=== PATIENT | male | born 1955 | race Caucasian/White ===

== ENCOUNTER 2020-06-11 12:30 | Observation (INO) | payer MEDICARE ==
[~2020-06-11] VITALS: Ht 177.8 cm; Wt 83.1 kg
--- NOTE | 2020-06-11 13:29 | PHYS DOC ---
General Adult EDM: Chief Complaint: ALTERED MENTAL STATUS HPI: HPI: 64-year-old male presents with multiple complaints. He has been feeling very anxious about his health over the last few days. Over the last month he states he is more winded with exertion. He is also had some central chest pain. It se ems to get better with rest. He also feels like his hearing has decreased significantly recently. He used to be on medications for high blood pressure and other things but took himself off of them 10 years ago. He has not really seen a doctor since that time. He is a smoker. No official diagnosis of COPD. He denies fever or chills. Review of Systems: Review of Systems: Constitutional: Denies fever or chills Eyes: Denies change in visual acuity HENT: Decreased hearing. Denies nasal congestion or sore throat Respiratory: Denies cough or shortness of breath Cardiovascular: Chest pain GI: Denies abdominal pain, nausea, vomiting, bloody stools or diarrhea : Denies dysuria Musculoskeletal: Denies back pain or joint pain Integument: Denies rash Neurologic: Altered mental status. Denies headache, focal weakness or sensory changes Endocrine: Denies polyuria or polydipsia Lymphatic: Denies swollen glands Psychiatric: Denies depression or anxiety Heart Score: HEART Score for Chest Pain: HEART Score for Chest Pain Response (Comments) Value History Moderately Suspicious 1 ECG Nonspecific Repolarizatio 1 Age > 65 2 Risk Factors 1 or 2 Risk Factors 1 Troponin < Normal Limit 0 Total 5 Risk Factors: Risk Factors: DM, Current or recent (<one month) smoker, HTN, HLP, family history of CAD, obesity. Risk Scores: Score 0 - 3: 2.5% MACE over next 6 weeks - Discharge Home Score 4 - 6: 20.3% MACE over next 6 weeks - Admit for Clinical Observation Score 7 - 10: 72.7% MACE over next 6 weeks - Early Invasive Strategies Allergies: Allergies: Allergies Coded Allergies Type Severity Reaction Last Updated Verified Penicillins Allergy Intermediate 06/11/20 Yes Physical Exam: PE: Constitutional: Well developed, well nourished, no acute distress, non-toxic appearance. [] HENT: Normocephalic, atraumatic, bilateral external ears normal, oropharynx moist, no oral exudates, nose normal. Bilateral tympanic membranes dull, but no signs of infection. [] Eyes: PERRLA, EOMI, conjunctiva normal, no discharge. [] Neck: Normal range of motion, no tenderness, supple, no stridor. [] Cardiovascular: Heart rate regular rhythm, no murmur [] Lungs & Thorax: Bilateral breath sounds clear to auscultation [] Abdomen: Bowel sounds normal, soft, no tenderness, no masses, no pulsatile masses. [] Skin: Warm, dry, no erythema, no rash. [] Back: No tenderness, no CVA tenderness. [] Extremities: No tenderness, no cyanosis, no clubbing, ROM intact, no edema. [] Neurologic: Alert and oriented X 3, normal motor function, normal sensory function, no focal deficits noted. [] Psychologic: Affect normal, judgement normal, mood anxious. [] EKG: EKG: Sinus bradycardia, rate 52, normal axis, no ST elevations or depressions, first- degree heart block. [] Radiology/Procedures: Radiology/Procedures: [] Impressions: Examination: CT HEAD WO CONTRAST History: Reason: AMS / Comparison/Correlation: None Findings: Axial images of the head were obtained without contrast. Atrophy and chronic ischemic changes are noted. No intracranial hemorrhage, midline shift, or mass effect. Significant calcific involvement of the superior aspect of the left vertebral artery is noted. Bony structures are unremarkable. Impression: No acute process. Electronically signed by: Luis Fernando Gandhi MD (06/11/2020 1:25 PM) [facility] DI[facility]ATED AND SIGNED BY: LUIS FERNANDO GANDHI MD DATE: 06/11/20 1325 CC: SRIKANTH MARIN DO; PCP,NO ~ Examination: CHEST AP ONLY History: Reason: AMS / Spl. Instructions: / History: Comparison: None. Findings: AP portable upright frontal view of the chest was obtained. The cardiomediastinal silhouette is normal. No focal infiltrate. Subtle interstitial thickening in the lung esparza diffusely is present.. There is no pneumothorax. No pleural effusion is appreciated. No acute bone abnormality. IMPRESSION: Subtle interstitial thickening of the lung esparza diffusely is of indeterminate chronicity. No focal process. Electronically signed by: Luis Fernando Gandhi MD (06/11/2020 1:34 PM) [facility] DI[facility]ATED AND SIGNED BY: LUIS FERNANDO GANDHI MD DATE: 06/11/20 1334 CC: SRIKANTH MARIN DO; PCP,DESTIN ~ Course & Med Decision Making: Course & Med Decision Making Pertinent Labs and Imaging studies reviewed. (See chart for details) The patient's labs are unremarkable. His EKG is negative for acute findings. His troponin is negative. His head CT is negative for acute findings. The patient does have a heart score of 5. I believe he would benefit from admission and further management. I spoke with Dr. Gustafson about the patient he has accepted him for admission. The patient is in agreement with this plan. [] Dragon Disclaimer: Dragon Disclaimer: This electronic medical record was generated, in whole or in part, using a voice recognition dictation system. Departure Departure: Impression: Primary Impression: Chest pain Additional Impressions: Altered mental status Anxiety about health Disposition: 09 ADMITTED INPT THIS HOSP Admitting Physician: Rao Gustafson Condition: STABLE Referrals: PCP,DESTIN (PCP) SRIKANTH MARIN DO Jun 11, 2020 13:29
[2020-06-11 13:32] LABS: BASO % 0 % (0-3); EOS # 0.1 x10^3/uL (0.0-0.7); EOS % 1 % (0-3); HEMOGLOBIN 16.9 g/dL (13.0-17.5); LYMPH # 1.4 x10^3/uL (1.0-4.8); LYMPH % 23 % (24-48); MEAN CORPUSCULAR HEMOGLOBIN 31 pg (25-35); MEAN CORPUSCULAR HGB CONC 34 g/dL (31-37); MEAN CORPUSCULAR VOLUME 90 fL (79-100); MONO # 0.8 x10^3/uL (0.0-1.1); MONO % 13 % (0-9); NEUT # 3.8 x10^3uL (1.8-7.7); NEUT % 63 % (31-73); PLATELET COUNT 275 x10^3/uL (140-400); RED BLOOD COUNT 5.53 x10^6/uL (4.30-5.70); RED CELL DISTRIBUTION WIDTH 13.6 % (11.5-14.5); WHITE BLOOD COUNT 6.1 x10^3/uL (4.0-11.0)
--- NOTE | 2020-06-11 13:37 | RAD ---
Examination: CHEST AP ONLY History: Reason: AMS / Spl. Instructions: / History: Comparison: None. Findings: AP portable upright frontal view of the chest was obtained. The cardiomediastinal silhouette is normal. No focal infiltrate. Subtle interstitial thickening in the lung esparza diffusely is present.. There is no pneumothorax. No pleural effusion is appreciated. No acute bone abnormality. IMPRESSION: Subtle interstitial thickening of the lung esparza diffusely is of indeterminate chronicity. No focal process. Electronically signed by: Luis Fernando Everett MD (06/11/2020 1:34 PM) [facility]
[2020-06-11 13:49] LABS: CALCIUM 9.2 mg/dL (8.5-10.1); CREATININE 0.8 mg/dL (0.7-1.3); GFR 96.7; POTASSIUM 3.8 mmol/L (3.5-5.1)
[2020-06-11 13:56] LABS: ALBUMIN 3.6 g/dL (3.4-5.0); ALBUMIN/GLOBULIN RATIO 0.8 (1.0-1.7); TOTAL BILIRUBIN 0.5 mg/dL (0.2-1.0); TOTAL PROTEIN 8.4 g/dL (6.4-8.2)
--- NOTE | 2020-06-11 13:56 | EKG ---
[address] [address] Test Date: 2020-06-11 Test Time: 13:27:58 Pat Name: MANAN PACE Department: Room: Gender: M Solder Technician: PRASANNA : 1955 Requested By: SRIKANTH MARIN Order Number: [id number] Reading MD: Mart Malone MD Measurements Intervals [place] Rate: 52 P: 51 TN: 244 QRS: 54 QRSD: 120 T: -1 QT: 408 QTc: 381 Interpretive Statements SINUS RHYTHM PROLONGED TN INTERVAL T ABNORMALITY IN INFERIOR LEADS ABNORMAL ECG RI6.02 No previous ECG available for comparison Electronically Signed On 06-11-2020 14:09:11 CDT by Mart Malone MD
[2020-06-11 20:12] LABS: BILIRUBIN,URINE NEG (NEG); CLARITY,URINE CLEAR; COLOR,URINE YELLOW; GLUCOSE,URINE NEG (NEG)
[2020-06-11 20:13] LABS: BACTERIA,URINE 0 /HPF (0-FEW); NITRITE,URINE NEG (NEG); RBC,URINE 0 /HPF (0-2); UROBILINOGEN,URINE 0.2 mg/dL (0.2 mg/dL); WBC,URINE 0 /HPF (0-4)
[2020-06-11 21:15] VITALS: BP 188/75
[2020-06-11] MEDS ORDERED: no home medications (22:03)
--- NOTE | 2020-06-11 22:21 | NUR ---
The patient, MANAN PACE, 64 y/o, M admitted by KLEVER ORTIZ MD, was given written information regarding hospital policies, unit procedures and contact persons. Valuables were checked and noted. PT brought in by friend to ER for AMS and chest pain. The chest pain occurs when coughing. Per PT, cough is productive of thin, white mucous. PT with dry, nonproductive cough while RN in room. CTA on RA. PT states he has pain in his back and sometime his neck at this time, no chest pain currently. Reviewed with PT his PMH, PSH, SH, FH and mediations. PT states his house needs to be sold but there is confusion on the will for that between himself and his sister. PT takes no medications. PT is not sure what he might have medically wrong with him now or in the past except for HTN and anxiety. He has had a LT shoulder surgery of some sort and he thinks there may be hardware there. Socially, the PT is close with his neighbor but does not see his sister, both parents are and has no children.
[2020-06-11 23:06] VITALS: BP 135/73
[2020-06-12] VITALS (7 sets, daily range): BP systolic 122–161; BP diastolic 66–84
--- NOTE | 2020-06-12 08:41 | PDOC2 ---
CARDIAC CONSULT DATE OF CONSULT DOS: DATE: 06/12/20 TIME: 08:38 REASON FOR CONSULT Reason for Consult Chest pain REFERRING PHYSICIAN Referring Physician Dr. Gustafson SOURCE Source: Chart review, Patient HPI History of Present Illness This is a 64 yo male who presented secondary to chest pain, HAWK, and decreased hearing. Patient reports for the last month that he has experienced shortness of breath, dizziness, and central chest pressure with exertional activities. Also reports hearing loss with exertional activities. Symptoms resolved with rest. No h/o heart disease. Did take medication of hypertension, but has not taken in about 10 yeas. Does not routinely go to the doctor. No recent cardiac workup. PAST MEDICAL HISTORY Cardiovascular: HTN Psych: Anxiety, Depression PAST SURGICAL HISTORY Past Surgical History: No pertinent history FAMILY HISTORY Family History: Diabetes, Hypertension SOCIAL HISTORY Smoke: 1 pack per day ALCOHOL: none Drugs: Other (h/o cocaine, marijuana use. Has not used in many years) Lives: Alone CURRENT MEDICATIONS Current Medications Current Medications Influenza Virus Vaccine Quadrival (Fluzone Quad Syringe) 0.5 ml ONCE ONCE VAX IM ; Start 06/12/20 at 09:00; Stop 06/12/20 at 09:01 Active Scripts Active Reported [no home medications] ALLERGIES Allergies: Coded Allergies: Penicillins (Verified Allergy, Intermediate, 06/11/20) ROS Review of Systems 14 point ROS conducted with pertinent positives noted above in HPI PHYSICAL EXAM General: Alert, Oriented X3, Cooperative, No acute distress HEENT: Atraumatic, Mucous membr. moist/pink Lungs: Other (diminished throughout ) Heart: Regular rate, Normal S1, Normal S2 Abdomen: Soft, No tenderness Extremities: No edema, Normal pulses Skin: No breakdown Neuro: Normal speech, Sensation intact Psych/Mental Status: Mental status NL, Mood NL MUSCULOSKELETAL: Osteoarthritic changes both hands VITALS Vital Signs Vital Signs Date Time Temp Pulse Resp B/P (MAP) Pulse Ox O2 Delivery O2 Flow Rate FiO2 06/12/20 05:25 97.9 57 18 151/71 (97) 95 Room Air LABS LABS Laboratory Tests Test 06/11/20 13:10 06/11/20 19:40 White Blood Count 6.1 x10^3/uL (4.0-11.0) Red Blood Count 5.53 x10^6/uL (4.30-5.70) Hemoglobin 16.9 g/dL (13.0-17.5) Hematocrit 50.0 % (39.0-53.0) Mean Corpuscular Volume 90 fL (79-100) Mean Corpuscular Hemoglobin 31 pg (25-35) Mean Corpuscular Hemoglobin Concent 34 g/dL (31-37) Red Cell Distribution Width 13.6 % (11.5-14.5) Platelet Count 275 x10^3/uL (140-400) Neutrophils (%) (Auto) 63 % (31-73) Lymphocytes (%) (Auto) 23 % (24-48) Monocytes (%) (Auto) 13 % (0-9) Eosinophils (%) (Auto) 1 % (0-3) Basophils (%) (Auto) 0 % (0-3) Neutrophils # (Auto) 3.8 x10^3uL (1.8-7.7) Lymphocytes # (Auto) 1.4 x10^3/uL (1.0-4.8) Monocytes # (Auto) 0.8 x10^3/uL (0.0-1.1) Eosinophils # (Auto) 0.1 x10^3/uL (0.0-0.7) Basophils # (Auto) 0.0 x10^3/uL (0.0-0.2) Sodium Level 136 mmol/L (136-145) Potassium Level 3.8 mmol/L (3.5-5.1) Chloride Level 100 mmol/L (98-107) Carbon Dioxide Level 24 mmol/L (21-32) Anion Gap 12 (6-14) Blood Urea Nitrogen 11 mg/dL (8-26) Creatinine 0.8 mg/dL (0.7-1.3) Estimated GFR (Cockcroft-Gault) 96.7 BUN/Creatinine Ratio 14 (6-20) Glucose Level 99 mg/dL (70-99) Lactic Acid Level 0.8 mmol/L (0.4-2.0) Calcium Level 9.2 mg/dL (8.5-10.1) Total Bilirubin 0.5 mg/dL (0.2-1.0) Aspartate Amino Transf (AST/SGOT) 14 U/L (15-37) Alanine Aminotransferase (ALT/SGPT) 11 U/L (16-63) Alkaline Phosphatase 54 U/L (46-116) Troponin I Quantitative < 0.017 ng/mL (0-0.055) Total Protein 8.4 g/dL (6.4-8.2) Albumin 3.6 g/dL (3.4-5.0) Albumin/Globulin Ratio 0.8 (1.0-1.7) Urine Collection Type Unknown Urine Color Yellow Urine Clarity Clear Urine pH 5.5 Urine Specific [place] 1.020 Urine Protein 30 mg/dl (NEG-TRACE) Urine Glucose (UA) Neg mg/dL (NEG) Urine Ketones (Stick) Trace mg/dL (NEG) Urine Blood Neg (NEG) Urine Nitrite Neg (NEG) Urine Bilirubin Neg (NEG) Urine Urobilinogen Dipstick 0.2 mg/dL (0.2 mg/dL) Urine Leukocyte Esterase Neg (NEG) Urine RBC 0 /HPF (0-2) Urine WBC 0 /HPF (0-4) Urine Squamous Epithelial Cells None /LPF Urine Bacteria 0 /HPF (0-FEW) ASSESSMENT/PLAN Assessment/Plan 1. Chest pain, mixed feature. Initial trop negative. EKG abnormal, but none previously for comparison. ? Related to underlying coronary vs lung disease. 2. Accelerated hypertension; remains elevated 3. 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 4. ? 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 Recommendations Echo to assess LV systolic function Trend troponin Lipids ASA therapy Add lisinopril for BP control Probable outpatient ischemic evaluation Smoking cessation discussed/encouraged Patient to follow up in our [place] office with Dr. Malone June 15 at 2:45pm. BEATRIZ WOOD APRN Jun 12, 2020 08:41
[2020-06-12] MEDS ORDERED: FLU VACC QS 2020-21(6MOS+)/PF 0.5 ML SYRINGE. VAX IM ONE (09:00)
[2020-06-12] MEDS: LISINOPRIL 10 MG TABLET PO SCH (10:34)
[2020-06-12] MEDS: ASPIRIN ENTERIC COATED 81 MG TABLET.DR. PO SCH (10:35)
--- NOTE | 2020-06-12 13:48 | PN ---
DATE: 06/12/2020 SUBJECTIVE: The patient was admitted yesterday for atypical chest pain, shortness of breath on exertion and also episodes of dizziness and basically, he has 2 sets of cardiac enzymes that ruled out myocardial infarction. He was seen in consultation by the pipe fitter fire sprinkler systems, who recommended basically an echo to assess left ventricular systolic function, check his lipid profile, start aspirin and add lisinopril and to arrange for an outpatient ischemic evaluation. When I saw him this afternoon, he continues complaining of dizziness that seems to be positional. OBJECTIVE: GENERAL: When I examined him, he looked well and was clearly in no apparent respiratory distress. No pallor, jaundice, cyanosis or thyromegaly. No jugular venous distention or limb edema. VITAL SIGNS: His heart rate was 60, blood pressure was 134/78, temperature was 97.6, respiratory rate 20, and oxygen saturation was 96% on room air. HEAD, EYES, EARS, NOSE AND THROAT: Showed normocephalic, atraumatic. NECK: Supple. HEART: Showed normal first and second heart sounds. No gallop or murmur. CHEST: Clear to auscultation. No crepitation or rhonchi. ABDOMEN: Distended, soft. NEUROLOGIC: He is awake, alert, responding appropriately. All cranial nerves are intact. He moves extremities without difficulty. He does seem to be hard of hearing. LABORATORY DATA: His lab work this morning showed that his second set of cardiac enzymes showed troponin to be less than 0.018. I did check his orthostatic and showed his blood pressure lying was 137/71 with a heart rate of 59. Blood pressure sitting was 138/74 and heart rate was 57 and blood pressure standing was 148/66 with a heart rate of 64. PLAN: My plan is obviously to await the result of the echocardiogram and also consult PT, OT and Dr. Ragland as he seemed to probably have some form of benign positional vertigo. KLEVER ORTIZ MD DR: JEROD/mc JOB#: [id number] / [id number]
--- NOTE | 2020-06-12 13:48 | HP ---
ADMIT DATE: 06/11/2020 HISTORY OF PRESENT ILLNESS: The patient is a 64-year-old male who presented to the Emergency Room with chest pain and dyspnea on exertion and decreased hearing. He reported that over the last month, he has experienced shortness of breath, dizziness, and central chest pressure with exertional activity. He also reported hearing loss with exertional activity. Symptoms resolved with rest. He has no history of heart disease. Did take medication for hypertension, but has not taken any for almost 10 years, has not seen a doctor for more than 10 years, has never had any cardiac workup. He was extensively investigated in the Emergency Room and his lab work was unremarkable. His first set of cardiac enzymes showed troponin to be less than ____ and his chest x-ray showed the cardiomediastinal silhouette is normal. No focal infiltrate. Subtle interstitial thickening in the lung esparza diffusely is present. There is no pneumothorax, no pleural effusion is appreciated, no acute bony abnormalities. The patient was admitted for further evaluation and treatment. His EKG showed that the patient was in sinus rhythm with prolonged WA interval. He has T-wave abnormalities in inferior leads, and unfortunately, there is no previous EKG to compare with. We will do 2 more sets of cardiac enzyme and consult the Cardiology team for evaluation and treatment. PAST MEDICAL HISTORY: Significant for hypertension, although he has not received any treatment for more than 10 years. He has also anxiety and depression. PAST SURGICAL HISTORY: Significant for skin graft to his right leg as he was electrocuted in his 40s. FAMILY HISTORY: Positive for type 2 diabetes and hypertension. SOCIAL HISTORY: He lives alone. He is single, never , has no children. He continued to smoke a pack a day, does not drink alcohol; however, he has a history of using cocaine and marijuana, although has not used it for many years. ALLERGIES: HE IS ALLERGIC TO PENICILLIN. MEDICATIONS: He is currently on no medication. REVIEW OF SYSTEMS: As per history of present illness. PHYSICAL EXAMINATION: GENERAL: On arrival to the Emergency Room, he looked well and was clearly in no apparent respiratory distress. No pallor, jaundice, cyanosis or thyromegaly. No jugular venous distention. No limb edema. VITAL SIGNS: His heart rate was 52, blood pressure was 188/75, temperature 97.8, respiratory rate was 18 and oxygen saturation was 94%. HEAD, EYES, EARS, NOSE AND THROAT: Showed normocephalic, atraumatic. NECK: Supple. HEART: Showed normal first and second heart sounds. No gallop or murmur. CHEST: Showed central trachea, equal bilateral expansion, air entry, vesicular sounds. No crepitation or rhonchi. ABDOMEN: Distended, soft, nontender. NEUROLOGIC: He is hard of hearing, but otherwise all his cranial nerves are intact. EXTREMITIES: He moves extremities without difficulty. He continued to complain of marked dizziness. LABORATORY DATA: His lab work on arrival showed a white cell count of 6100, hemoglobin 17, hematocrit 50, MCV was 90 and platelet count 275,000. His chemistry showed a serum sodium 136, potassium 3.8, chloride 100, bicarbonate 24, anion gap of 12, BUN 11, creatinine was 0.8, estimated GFR was 96 mL per minute, his glucose was 99, lactic acid was 0.8, calcium was 9.2. Total bilirubin, AST, ALT, alkaline phosphatase were normal. His first troponin was less than 0.017. Total protein was 8.4 and albumin was 3.6. His urinalysis showed the urine was yellow, clear with a pH of 5.5, specific gravity of 1.020. The urine showed mild proteinuria, but negative for glucose, trace of ketones, and negative for blood, nitrite and leukocyte esterase. There are no rbc's, no wbc's, and no bacteria. His CT scan of the head showed atrophy and chronic ischemic changes are noted. No intracranial hemorrhage, midline shift, or mass effect. Significant calcific involvement of the superior aspect of the left vertebral artery is noted. Bony structures are unremarkable. His chest x-ray showed the cardiomediastinal silhouette is normal. No focal infiltrate. Subtle interstitial thickening in the lung esparza diffusely is present. There is no pneumothorax, no pleural effusion is appreciated, and no acute bone abnormalities. PLAN: The patient was admitted to do 2 more sets of cardiac enzyme and consult the Cardiology team. KLEVER ORTIZ MD DR: JEROD/mc JOB#: [id number] / [id number]
--- NOTE | 2020-06-12 14:35 | NUR ---
CONSULT FOR DR. STEEN CALLED FOR DIZZINESS.
[2020-06-12 16:15] LABS: THYROID STIM HORMONE (TSH) 1.911 uIU/mL (0.358-3.740)
--- NOTE | 2020-06-12 16:48 | CARD ---
MR#: [id number] Date of Study: 06/12/2020 Ordering Physician: BEATRIZ WOOD, Referring Physician: BEATRIZ WOOD, Tech: Leah Perez ALIN APPROVED REPORT EXAM: Two-dimensional and M-mode echocardiogram with Doppler and color Doppler. Other Information Quality : Good INDICATION Chest Pain Dyspnea on Exertion 2D DIMENSIONS RVDd3.0 (2.9-3.5cm)Left Atrium(2D)4.0 (1.6-4.0cm) IVSd0.9 (0.7-1.1cm)Aortic Root(2D)2.9 (2.0-3.7cm) LVDd5.3 (3.9-5.9cm)PWd0.9 (0.7-1.1cm) LVDs2.5 (2.5-4.0cm)FS (%) 30.0 % SV114.6 mlLVEF(%)60.0 (>50%) Aortic Valve AoV Peak Stephen.135.9cm/sAoV VTI25.8cm AO Peak GR.7.4mmHgAO Mean GR.4mmHg VANE (VTI)4.87cm2 Mitral Valve MV E Xxpailwi39.7cm/sMV DECEL [id number] MV A Wewdenyo97.0cm/sE/A Ratio0.9 Tricuspid Valve TR P. Wykmbrqz950lf/sRAP AFOXKZAK1ctXd TR Peak Gr.16hzXzTIGX52khMk LEFT VENTRICLE The left ventricle is normal size. There is normal left ventricular wall thickness. The left ventricu lar systolic function is normal and the ejection fraction is within normal range. The Ejection Fracti on is 55-60%. There is minimal hypokinesis in the basal inferior wall. Transmitral Doppler flow patte rn is Grade I-abnormal relaxation pattern. RIGHT VENTRICLE The right ventricle is normal size. The right ventricular systolic function is normal. A moderator ba nd is seen in the right ventricle. ATRIA The left atrium is mildly dilated. The right atrium size is normal. The interatrial septum is intact with no evidence for an atrial septal defect or patent foramen ovale as noted on 2-D or Doppler imagi ng. AORTIC VALVE The aortic valve is calcified but opens well. Doppler and Color Flow revealed no significant aortic r egurgitation. There is no significant aortic valvular stenosis. MITRAL VALVE The mitral valve is calcified but opens well. There is no evidence of mitral valve prolapse. There is no mitral valve stenosis. Doppler and Color-flow revealed trace mitral regurgitation. TRICUSPID VALVE The tricuspid valve is normal in structure and function. Doppler and Color Flow revealed trace tricus pid regurgitation. The PA pressure was estimated at 16 mmHg. There is no tricuspid valve stenosis. PULMONIC VALVE The pulmonic valve is not well visualized. Doppler and Color Flow revealed no pulmonic valvular regur gitation. There is no pulmonic valvular stenosis. GREAT VESSELS The aortic root is normal in size. The ascending aorta is not well seen. The IVC is normal in size an d collapses >50% with inspiration. PERICARDIAL EFFUSION There is no evidence of significant pericardial effusion. Critical Notification Critical Value: No <Conclusion> The left ventricle is normal size. The left ventricular systolic function is normal and the ejection fraction is within normal range. The Ejection Fraction is 55-60%. There is minimal hypokinesis in the basal inferior wall. Doppler and Color Flow revealed no significant aortic regurgitation. There is no significant aortic valvular stenosis. Doppler and Color-flow revealed trace mitral regurgitation. Doppler and Color Flow revealed trace tricuspid regurgitation. The PA pressure was estimated at 16 mmHg. Signed by : Héctor Vega MD Electronically Approved : 06/12/2020 16:48:01
[2020-06-12] MEDS ORDERED: ACETAMINOPHEN 325 MG TABLET PO PRN (17:00)
[2020-06-13 04:59] VITALS: BP 154/80
[2020-06-13 07:53] VITALS: BP 154/80
[2020-06-13] MEDS: ASPIRIN ENTERIC COATED 81 MG TABLET.DR. PO SCH (07:53)
[2020-06-13] MEDS: LISINOPRIL 10 MG TABLET PO SCH (07:53)
--- NOTE | 2020-06-13 08:37 | DS ---
DATE OF DISCHARGE: 06/13/2020 ATTENDING PHYSICIANS: Dr. Gustafson, Dr. Gardner FINAL DISCHARGE DIAGNOSES: 1. Altered mentation, resolved. 2. Underlying anxiety with personality disorder. 3. Probable developmental delay. 4. Cardiac workup, but nonischemic. 5. Chronic obstructive pulmonary disease. 6. Dyspnea related to cigarette use. 7. Component of benign positional vertigo, resolved. HISTORY AND PHYSICAL: This is a 64-year-old gentleman, totally noncompliant, continues to smoke, presented to the ED with chest pain atypical and some dyspnea with exertion. He is a heavy smoker. He was admitted for further treatment and evaluation. PHYSICAL EXAMINATION: Please see the dictated note. PERTINENT LABORATORY AND X-RAY STUDIES: Two sets of cardiac enzymes were negative for myocardial necrosis. Electrolytes were within normal range. Hemoglobin maintained at 16.9 g/dL with a white count of 6100. The obligatory CT of the head showed no acute process and a chest x-ray done on admission showed subtle interstitial thickening, diffusely chronic in nature. No acute infiltrates or decompensation identified. COURSE IN THE HOSPITAL: The patient was seen in consultation, had Cardiology evaluation. They recommended an aspirin and treatment of hypertension. He has been notoriously noncompliant in the past. Lisinopril was started. He has some sleeping issues. I recommended a trial of [id number] Restoril. Please refer to Cardiology consultation. By the third day, he requested Public Transit Specialist help. His parents have . He lives in the house. He has very little insight and has difficulty managing. At this time, I reassured him. He needs to follow up, whether or not he will see the followup doctor remains to be seen. He was stable on the day of discharge. Vital signs were stable. He was afebrile. He had no further chest pain. He was discharged home with a prescription for lisinopril 10 mg 1 p.o. daily, Restoril 30 mg 1 at bedtime #15 pills. Followup visit with his primary care physician when available. He has very little insight. He was set up to see Cardiology as an outpatient, whether or not he will go there remains to be seen. I recommended a baby aspirin a day. In addition, we had case work aide to see him. Strong encouragement to quit smoking, whether or not he will quit remains to be seen. In any event, the patient was then discharged from our hospital in stable condition with explicit instructions and followup care. TOTAL DISCHARGE TIME SPENT: 41 minutes. ISRAEL GARDNER MD DR: SOFIA/mc JOB#: [id number] / [id number] ROSALBA White MD
--- NOTE | 2020-06-13 08:49 | PDOC ---
CARDIO Progress Notes Date & Time Date of Service DATE: 06/13/20 TIME: 08:47 Time of Evaluation 08:47 Subjective Notes No chest pain, palpitations, dizziness, diaphoresis Vitals Vitals Vital Signs Date Time Temp Pulse Resp B/P (MAP) Pulse Ox O2 Delivery O2 Flow Rate FiO2 06/13/20 08:07 Room Air 06/13/20 07:53 52 154/80 06/13/20 04:59 98.0 20 94 Weight Weight [ ] Input and Output I.O. Intake and Output 06/13/20 07:00 Intake Total 1960 ml Output Total 4 ml Balance 1956 ml Intake Oral 1960 ml Output Urine Total 4 ml Laboratory Labs Laboratory Tests Test 06/11/20 13:10 06/11/20 19:40 06/12/20 11:24 White Blood Count 6.1 x10^3/uL (4.0-11.0) Red Blood Count 5.53 x10^6/uL (4.30-5.70) Hemoglobin 16.9 g/dL (13.0-17.5) Hematocrit 50.0 % (39.0-53.0) Mean Corpuscular Volume 90 fL (79-100) Mean Corpuscular Hemoglobin 31 pg (25-35) Mean Corpuscular Hemoglobin Concent 34 g/dL (31-37) Red Cell Distribution Width 13.6 % (11.5-14.5) Platelet Count 275 x10^3/uL (140-400) Neutrophils (%) (Auto) 63 % (31-73) Lymphocytes (%) (Auto) 23 % (24-48) Monocytes (%) (Auto) 13 % (0-9) Eosinophils (%) (Auto) 1 % (0-3) Basophils (%) (Auto) 0 % (0-3) Neutrophils # (Auto) 3.8 x10^3uL (1.8-7.7) Lymphocytes # (Auto) 1.4 x10^3/uL (1.0-4.8) Monocytes # (Auto) 0.8 x10^3/uL (0.0-1.1) Eosinophils # (Auto) 0.1 x10^3/uL (0.0-0.7) Basophils # (Auto) 0.0 x10^3/uL (0.0-0.2) Sodium Level 136 mmol/L (136-145) Potassium Level 3.8 mmol/L (3.5-5.1) Chloride Level 100 mmol/L (98-107) Carbon Dioxide Level 24 mmol/L (21-32) Anion Gap 12 (6-14) Blood Urea Nitrogen 11 mg/dL (8-26) Creatinine 0.8 mg/dL (0.7-1.3) Estimated GFR (Cockcroft-Gault) 96.7 BUN/Creatinine Ratio 14 (6-20) Glucose Level 99 mg/dL (70-99) Lactic Acid Level 0.8 mmol/L (0.4-2.0) Calcium Level 9.2 mg/dL (8.5-10.1) Total Bilirubin 0.5 mg/dL (0.2-1.0) Aspartate Amino Transf (AST/SGOT) 14 U/L (15-37) Alanine Aminotransferase (ALT/SGPT) 11 U/L (16-63) Alkaline Phosphatase 54 U/L (46-116) Troponin I Quantitative < 0.017 ng/mL (0-0.055) 0.018 ng/mL (0-0.055) Total Protein 8.4 g/dL (6.4-8.2) Albumin 3.6 g/dL (3.4-5.0) Albumin/Globulin Ratio 0.8 (1.0-1.7) Urine Collection Type Unknown Urine Color Yellow Urine Clarity Clear Urine pH 5.5 Urine Specific [place] 1.020 Urine Protein 30 mg/dl (NEG-TRACE) Urine Glucose (UA) Neg mg/dL (NEG) Urine Ketones (Stick) Trace mg/dL (NEG) Urine Blood Neg (NEG) Urine Nitrite Neg (NEG) Urine Bilirubin Neg (NEG) Urine Urobilinogen Dipstick 0.2 mg/dL (0.2 mg/dL) Urine Leukocyte Esterase Neg (NEG) Urine RBC 0 /HPF (0-2) Urine WBC 0 /HPF (0-4) Urine Squamous Epithelial Cells None /LPF Urine Bacteria 0 /HPF (0-FEW) Triglycerides Level 70 mg/dL (0-150) Cholesterol Level 134 mg/dL (0-200) LDL Cholesterol, Calculated 78 mg/dL (0-100) VLDL Cholesterol, Calculated 14 mg/dL (0-40) Non-HDL Cholesterol Calculated 92 mg/dL (0-129) HDL Cholesterol 42 mg/dL (40-60) Cholesterol/HDL Ratio 3.0 Thyroid Stimulating Hormone (TSH) 1.911 uIU/mL (0.358-3.740) Microbiology Micro Microbiology 06/11/20 Blood Culture - Preliminary, Resulted NO GROWTH AFTER 1 DAY... Physical Exams HEENT: Neck Supple W Full Motion Chest: Symmetric Lungs: Clear to Auscultation Heart: RRR Abdomen: Soft N/T Extremities: No Edema Neurology: alert, oriented, follow commands Assessment Assessment 1. Chest pain, mixed feature. Troponin series normal; AMI ruled out. Echo with preserved LV systolic function 2. Accelerated hypertension; better controlled 3. 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 4. ? 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 Recommendations ASA therapy Continue lisinopril for BP control Consider outpatient ischemic evaluation Smoking cessation reinforced Follow up scheduled this week with Dr. Malone. Patient is not able to make this. His current priority is finding place to live before it gets cold as his furnace is out in his current residence. Expressed need for further ischemic evaluation given chest pain upon exertion. Patient states he will make an appointment next week when he gets his living arrangement straightened out. Office contact information provider [employer] to see patient for additional resources. BEATRIZ WOOD APRN Jun 13, 2020 08:49
--- NOTE | 2020-06-13 09:18 | NUR ---
NURSING NOTE PT VERY AGITATED THIS AM, STATING THIS IS "BULLSHIT". STATES HE HAS NOT SEEN A DOCTOR IN OVER 10+ YEARS, BUT THAT DR CARTAGENA IS HIS PRIMARY CARE AND THAT HE SHOULD BE SEEING HIM. PT STATES HE IS LOSING HIS HOUSE, LIVES IN HIS PARENTS HOUSE BUT THE FURNACE WENT OUT AND PT CANNOT AFFORD TO REPLACE FURNACE. PT STATES HE NEEDS HELP GETTING INTO A PLACE WHERE HE CAN PAY BASED OFF HIS INCOME. CASE MANAGEMENT CONSULTED. SPOKE WITH PT AND GAVE PT INFORMATION ABOUT SISTER ALVIN TO HELP PT IN HIS SITUATION ABOUT GETTING THE APPROPRIATE FORMS TO FILL OUT FROM THE HOUSING FACILITY HE WOULD LIKE TO TRY TO GET INTO AND HELPING HIM FILL IT OUT. PT VERY UPSET AND DOES NOT UNDERSTAND WHY THE HOSPITAL CANNOT FILL OUT THE FORMS THAT ARE NEEDED TO GET HIM INTO A HOUSING FACILITY BASED OFF INCOME SINCE HE WILL NEED TO FIND SOMEWHERE BEFORE IT GETS COLD OUTSIDE SINCE HE CANNOT AFFORD TO BUY A FURNACE. PARRIS ZAMBRANO.
--- NOTE | 2020-06-13 09:30 | NUR ---
NURSING NOTE THIS NURSE PHONED [facility] THAT PT WAS SPEAKING ABOUT THIS AM TO FIND OUT APPLICATION PROCESS. IN ORDER TO GET INTO FACILITY, THE PERSON MUST COME TO FACILITY, GET AN APPLICATION, FILL OUT APPLICATION AND PROVIDE THE APPROPRIATE DOCUMENTS. PER FACILITY, THEY HAVE A 6 MONTH TO 1 YEAR WAITING PERIOD BECAUSE THEY ARE FULL AT THIS TIME. PT GIVEN CONTACT INFORMATION AND INSTRUCTED TO GO AND GET APPLICATION STARTED AND COMPLETED TO GET ON WAITING LIST IF THAT IS THE FACILITY PT WANTS TO GET INTO. PT ACKNOWLEDGED AND STATES HE CANNOT FILL OUT THE APPLICATION AND NEEDS HELP. INFORMED PT TO ASK A FRIEND OR FAMILY MEMBER TO HELP HIM WHEN APPLICATION DOCUMENT IS OBTAINED. PARRIS ZAMBRANO.
--- NOTE | 2020-06-13 10:04 | NUR ---
NURSING NOTE DISCHARGE PT DISCHARGED HOME VIA WHEELCHAIR PICKED UP BY FRIEND. PT GIVEN WRITTEN AND VERBAL DISCHARGE INSTRUCTIONS. PT REFUSED CARDIOLOGY FOLLOW UP APPT STATING HE CANNOT GO TO THE APPT HAS TOO MUCH GOING ON RIGHT NOW, PT GIVEN CONTACT INFORMATION TO CALL AND SCHEDULE A FOLLOW UP AT A TIME THAT WORKS FOR HIM. [facility]. PT UNFORTUNATELY UNINTERESTED IN DISCHARGE EDUCATION PROVIDED. PARRIS ZAMBRANO.
== END 2020-06-13 10:10 | disposition home or self-care (01) ==
LOC: ER 12:30 → INTOOBSV 15:30 → 1 SOUTH 15:30
PROVIDERS: ADMIT Internal Medicine; ATTEND Hospitalist
DX: R07.89 Other chest pain (principal); R06.00 Dyspnea, unspecified; H91.90 Unspecified hearing loss, unspecified ear; J44.9 Chronic obstructive pulmonary disease, unspecified; I10 Essential (primary) hypertension; F41.9 Anxiety disorder, unspecified; F17.210 Nicotine dependence, cigarettes, uncomplicated; F32.9 Major depressive disorder, single episode, unspecified; R41.82 Altered mental status, unspecified; H81.10 Benign paroxysmal vertigo, unspecified ear; Z23 Encounter for immunization; Z91.19 Patient's noncompliance with other medical treatment and regimen
CPT/HCPCS: 36415; 70450; 71045; 80053; 80061; 81001; 83605; 84443; 84484; 85025; 87040; 90686; 93005; 93306; 97165; 97530; 99285; G0008; G0378; G0379; 90471

== ENCOUNTER 2021-04-09 14:38 | Observation (INO) | payer MEDICARE ==
[~2021-04-09] VITALS: Ht 162.6 cm; Wt 99.0 kg
[~2021-04-09 14:38] MED LIST: no home medications
[2021-04-09] MEDS ORDERED: IOHEXOL 350 MG/ML 100 ML VIAL. IV ONE (15:15)
--- NOTE | 2021-04-09 15:25 | RAD ---
EXAM: CT HEAD WITHOUT CONTRAST. HISTORY: Left weakness. TECHNIQUE: Computed tomography of the head was performed without intravenous contrast. One or more of the following individualized dose reduction techniques were utilized for this examination: 1. Automated exposure control. 2. Adjustment of the mA and/or kV according to patient size. 3. Use of iterative reconstruction technique. COMPARISON: 06/11/2020. FINDINGS: Portions of the skull base are excluded. There is no intracranial hemorrhage. Hypoattenuati on within the periventricular white matter indicates mild chronic microangiopathic change. The ventri cles are normal in size and position. The visualized paranasal sinuses appear clear. The orbits are unremarkable. The temporal bones are un remarkable. The calvarium reveals no suspicious lesions. IMPRESSION: 1. Limitations as the skull base is partially excluded. No acute intracranial findings. Electronically signed by: Ehsan Billingsley MD (04/09/2021 3:23 PM) [id number]
[2021-04-09 15:30] LABS: BASO % 1 % (0-3); EOS # 0.3 x10^3/uL (0.0-0.7); EOS % 3 % (0-3); HEMATOCRIT 47.4 % (39.0-53.0); HEMOGLOBIN 16.2 g/dL (13.0-17.5); LYMPH # 2.9 x10^3/uL (1.0-4.8); LYMPH % 30 % (24-48); MEAN CORPUSCULAR HEMOGLOBIN 31 pg (25-35); MEAN CORPUSCULAR HGB CONC 34 g/dL (31-37); MEAN CORPUSCULAR VOLUME 90 fL (79-100); MONO # 0.9 x10^3/uL (0.0-1.1); MONO % 10 % (0-9); NEUT # 5.4 x10^3uL (1.8-7.7); NEUT % 57 % (31-73); PLATELET COUNT 270 x10^3/uL (140-400); RED BLOOD COUNT 5.26 x10^6/uL (4.30-5.70); RED CELL DISTRIBUTION WIDTH 13.9 % (11.5-14.5); WHITE BLOOD COUNT 9.5 x10^3/uL (4.0-11.0)
[2021-04-09] MEDS ORDERED: CONTRAST GIVEN. MC PRN (15:30)
[2021-04-09 15:33] LABS: CALCIUM 8.9 mg/dL (8.5-10.1); CREATININE 0.9 mg/dL (0.7-1.3); GFR 84.2; POTASSIUM 4.4 mmol/L (3.5-5.1)
--- NOTE | 2021-04-09 15:40 | EKG ---
[address] [address] Test Date: 2021-04-09 Test Time: 15:21:49 Pat Name: MANAN PACE Department: Room: Gender: M [employer] Supervisor: PRASANNA : 1955 Requested By: ANJUM ARNETT Order Number: [id number] Reading MD: Measurements Intervals [place] Rate: 54 P: 2 IN: 208 QRS: 51 QRSD: 116 T: 24 QT: 418 QTc: 398 Interpretive Statements SINUS RHYTHM QRS(T) CONTOUR ABNORMALITY CONSIDER INFERIOR MYOCARDIAL DAMAGE POSSIBLY ABNORMAL ECG RI6.02 No previous ECG available for comparison
[2021-04-09 15:45] LABS: ALBUMIN 3.9 g/dL (3.4-5.0); MAGNESIUM 2.2 mg/dL (1.8-2.4); TOTAL BILIRUBIN 0.7 mg/dL (0.2-1.0); TOTAL PROTEIN 7.7 g/dL (6.4-8.2)
--- NOTE | 2021-04-09 15:46 | PHYS DOC ---
Past History Past Medical History: Other Additional Past Medical Histor: electrocuted Past Surgical History: No Surgical History, Other Additional Past Surgical Histo: L shoulder Alcohol Use: None General Adult EDM: Chief Complaint: NEURO SYMPTOMS/DEFICITS HPI: HPI: Patient is a 65-year male sent in from his primary care provider for possible stroke symptoms. Patient states that he woke up from a nap about 24 hours prior to arrival and felt some tingling in his left side and left lower leg. Patient initially did not seek assistance because he thought maybe he just left wrong. Describes numbness is tingling. States he has difficulty walking because he has a hard time. Where his left leg is and has left leg weakness. Patient is called in the stumble several times. History of hypertension, no history of str silas or blood thinner use. Review of Systems: Review of Systems: All other systems within normal limits except for as noted in the HPI Current Medications: Current Meds: Current Medications Medications (Trade) Dose Ordered Sig/Isabell Start Time Stop Time Status Last Admin Dose Admin Info (Do NOT chart on this entry -- for MONITORING) 1 each PRN DAILY PRN 04/09/21 15:30 04/11/21 15:29 Iohexol (Omnipaque 350 Mg/ml) 100 ml 1X ONCE 04/09/21 15:15 04/09/21 15:25 DC Allergies: Allergies: Allergies Coded Allergies Type Severity Reaction Last Updated Verified Penicillins Allergy Intermediate 06/11/20 Yes ibuprofen Allergy Unknown 04/09/21 Yes Physical Exam: PE: Constitutional: Well developed, well nourished, no acute distress, non-toxic appearance. [] HENT: Normocephalic, atraumatic, bilateral external ears normal, nose normal. [] Eyes: PERRLA, conjunctiva normal, no discharge. [] Neck: No rigidity, supple, no stridor. [] Cardiovascular: Regular rate and rhythm, brisk cap refill [] Lungs & Thorax: Non labored symmetric respirations, no tachypnea or respiratory distress [] Abdomen: Soft, nondistended. Skin: Warm, dry, no erythema, no rash. [] Back: Unremarkable Extremities: No deformities, range of motion grossly intact, no lower extremity edema [] Neurologic: Alert and oriented X 3, 4/5 strength on left lower extremity, remaining exam unremarkable, and NIH 2 [] Psychologic: Affect normal, judgement normal, mood normal. [] Current Patient Data: Labs: Laboratory Tests Test 04/09/21 15:05 White Blood Count 9.5 x10^3/uL (4.0-11.0) Red Blood Count 5.26 x10^6/uL (4.30-5.70) Hemoglobin 16.2 g/dL (13.0-17.5) Hematocrit 47.4 % (39.0-53.0) Mean Corpuscular Volume 90 fL (79-100) Mean Corpuscular Hemoglobin 31 pg (25-35) Mean Corpuscular Hemoglobin Concent 34 g/dL (31-37) Red Cell Distribution Width 13.9 % (11.5-14.5) Platelet Count 270 x10^3/uL (140-400) Neutrophils (%) (Auto) 57 % (31-73) Lymphocytes (%) (Auto) 30 % (24-48) Monocytes (%) (Auto) 10 % (0-9) H Eosinophils (%) (Auto) 3 % (0-3) Basophils (%) (Auto) 1 % (0-3) Neutrophils # (Auto) 5.4 x10^3uL (1.8-7.7) Lymphocytes # (Auto) 2.9 x10^3/uL (1.0-4.8) Monocytes # (Auto) 0.9 x10^3/uL (0.0-1.1) Eosinophils # (Auto) 0.3 x10^3/uL (0.0-0.7) Basophils # (Auto) 0.0 x10^3/uL (0.0-0.2) Sodium Level 141 mmol/L (136-145) Potassium Level 4.4 mmol/L (3.5-5.1) Chloride Level 104 mmol/L (98-107) Carbon Dioxide Level 31 mmol/L (21-32) Anion Gap 6 (6-14) Blood Urea Nitrogen 17 mg/dL (8-26) Creatinine 0.9 mg/dL (0.7-1.3) Estimated GFR (Cockcroft-Gault) 84.2 BUN/Creatinine Ratio 19 (6-20) Glucose Level 122 mg/dL (70-99) H Calcium Level 8.9 mg/dL (8.5-10.1) Phosphorus Level Pending Magnesium Level Pending Total Bilirubin Pending Aspartate Amino Transferase (AST) Pending Alanine Aminotransferase (ALT) Pending Alkaline Phosphatase Pending KN-Ocf-I-Type Natriuretic Peptide Pending Total Protein Pending Albumin Pending Albumin/Globulin Ratio Pending Vital Signs: Vital Signs Date Time Temp Pulse Resp B/P (MAP) Pulse Ox O2 Delivery O2 Flow Rate FiO2 04/09/21 14:49 99.0 58 18 192/83 96 Room Air EKG: EKG: [] Radiology/Procedures: Radiology/Procedures: [address] [address] IMAGING REPORT Signed PATIENT: MANAN PACE ACCOUNT: [id number] : 1955 LOCATION: ER AGE: 65 SEX: M EXAM STATUS: REG ER ORD. PHYSICIAN: ANJUM ARNETT MD REASON: left sided weakness PROCEDURE: CT ANGIOGRAPHY HEAD AND NECK PQRS Compliance Statement: One or more of the following individualized dose reduction techniques were utilized for this examination: 1. Automated exposure control 2. Adjustment of the mA and/or kV according to patient size 3. Use of iterative reconstruction technique CTA HEAD AND NECK W/WO CONTRAST Clinical Indication: Reason: left sided weakness / Spl. Instructions: / History: Comparison: CT head without contrast, earlier same day. Technique: Helical CT imaging from inferior to the aortic arch to the skull vertex is performed after 100 cc of Omnipaque [address] angiogram protocol. 3-D MIP reconstructions of the cervical carotid arteries and [place] of [place] are performed. PQRS Compliance Statement - Stenosis calculations for CT, MR and conventional angiography are based upon measurement of the distal ICA diameter in accordance with the NASCET methodology. Stenosis calculations for carotid ultrasound studies are derived from validated velocity criteria which are known to correlate with the NASCET methodology. Findings: Aortic arch branches are patent. Common carotid arteries are patent. There is approximately a 50 percent stenosis at the origin of the right internal carotid artery due to atherosclerotic calcification. No other significant narrowing is seen. There is no significant stenosis of the cervical left internal carotid artery. The cervical right vertebral artery is patent. Cervical left vertebral artery is patent. There is no evidence of dissection. The distal left vertebral artery is dominant. There is mild atherosclerotic calcification of the distal left artery. The posterior circulation is intact. Mild calcification of the cavernous internal carotid arteries. The anterior cerebral arteries are patent. Middle cerebral arteries are patent. No intracranial aneurysm is identified. The visualized dural venous sinuses are patent. No abnormal enhancement in the brain parenchyma is identified. There is moderate centrilobular and paraseptal emphysema in the lung apices. There are reticular and groundglass opacities posteriorly in the upper lobes. Cervical spine alignment is maintained. IMPRESSION: 1. There is no intracranial large vessel occlusion. 2. Approximately 50 percent stenosis at the origin of the right internal carotid artery. 3. Moderate pulmonary emphysema in the upper lungs. Electronically signed by: Jose A Hdz MD (04/09/2021 4:45 PM) [facility] DICTATED AND SIGNED BY: JOSE A HDZ MD DATE: 04/09/21 163 CC: ANJUM ARNETT MD; ROSALBA ACRTAGENA MD ~MTH0 0 [] Heart Score: C/O Chest Pain: No Risk Factors: Risk Factors: DM, Current or recent (<one month) smoker, HTN, HLP, family history of CAD, obesity. Risk Scores: Score 0 - 3: 2.5% MACE over next 6 weeks - Discharge Home Score 4 - 6: 20.3% MACE over next 6 weeks - Admit for Clinical Observation Score 7 - 10: 72.7% MACE over next 6 weeks - Early Invasive Strategies Course & Med Decision Making: Course & Med Decision Making Pertinent Labs and Imaging studies reviewed. (See chart for details) [] Dragon Disclaimer: Draglori Disclaimer: This electronic medical record was generated, in whole or in part, using a voice recognition dictation system. Departure Departure: Impression: Primary Impression: Left leg weakness Disposition: ADMITTED INPATIENT Admitting Physician: Rosalba Cartagena Referrals: ROSALBA CARTAGENA MD (PCP) Scripts No Active Prescriptions or Reported Meds ANJUM ARNETT MD Apr 09, 2021 15:46
[2021-04-09 16:01] LABS: BACTERIA,URINE 0 /HPF (0-FEW); BILIRUBIN,URINE NEG (NEG); CLARITY,URINE CLEAR; COLOR,URINE YELLOW; GLUCOSE,URINE NEG (NEG); NITRITE,URINE NEG (NEG); RBC,URINE 0 /HPF (0-2); WBC,URINE 0 /HPF (0-4)
--- NOTE | 2021-04-09 16:47 | RAD ---
PQRS Compliance Statement: One or more of the following individualized dose reduction techniques were utilized for this examinat ion: 1. Automated exposure control 2. Adjustment of the mA and/or kV according to patient size 3. Use of iterative reconstruction technique CTA HEAD AND NECK W/WO CONTRAST Clinical Indication: Reason: left sided weakness / Spl. Instructions: / History: Comparison: CT head without contrast, earlier same day. Technique: Helical CT imaging from inferior to the aortic arch to the skull vertex is performed after 100 cc of Omnipaque [address] angiogram protocol. 3-D MIP reconstructions of the cerv ical carotid arteries and [place] of [place] are performed. PQRS Compliance Statement - Stenosis calculations for CT, MR and conventional angiography are based u genna measurement of the distal ICA diameter in accordance with the NASCET methodology. Stenosis calcu lations for carotid ultrasound studies are derived from validated velocity criteria which are known t o correlate with the NASCET methodology. Findings: Aortic arch branches are patent. Common carotid arteries are patent. There is approximately a 50 perc ent stenosis at the origin of the right internal carotid artery due to atherosclerotic calcification. No other significant narrowing is seen. There is no significant stenosis of the cervical left graphics intern al carotid artery. The cervical right vertebral artery is patent. Cervical left vertebral artery is patent. There is no evidence of dissection. The distal left vertebral artery is dominant. There is mild atherosclerotic c alcification of the distal left artery. The posterior circulation is intact. Mild calcification of the cavernous internal carotid arteries. The anterior cerebral arteries are pat ent. Middle cerebral arteries are patent. No intracranial aneurysm is identified. The visualized dural venous sinuses are patent. No abnormal enhancement in the brain parenchyma is id entified. There is moderate centrilobular and paraseptal emphysema in the lung apices. There are reticular and groundglass opacities posteriorly in the upper lobes. Cervical spine alignment is maintained. IMPRESSION: 1. There is no intracranial large vessel occlusion. 2. Approximately 50 percent stenosis at the origin of the right internal carotid artery. 3. Moderate pulmonary emphysema in the upper lungs. Electronically signed by: Jose A Hdz MD (04/09/2021 4:45 PM) [facility]
[2021-04-09] MEDS ORDERED: ACETAMINOPHEN 325 MG TABLET PO PRN (17:45)
[2021-04-09] MEDS ORDERED: ONDANSETRON PF 4 MG/2 ML VIAL. IVP PRN (17:45)
[2021-04-09 21:01] VITALS: BP 185/78
[2021-04-09] MEDS ORDERED: ASPIRIN ENTERIC COATED 81 MG TABLET.DR. PO ONE (21:30)
[2021-04-09 21:40] VITALS: BP 167/74
[2021-04-09] MEDS: amLODIPine BESYLATE 5 MG TABLET PO SCH (22:08)
[2021-04-10 00:05] VITALS: BP 122/62
[2021-04-10 05:50] VITALS: BP 111/64
[2021-04-10 06:25] LABS: BASO % 1 % (0-3); EOS # 0.3 x10^3/uL (0.0-0.7); EOS % 4 % (0-3); HEMATOCRIT 45.4 % (39.0-53.0); HEMOGLOBIN 15.5 g/dL (13.0-17.5); LYMPH # 2.6 x10^3/uL (1.0-4.8); LYMPH % 30 % (24-48); MEAN CORPUSCULAR HEMOGLOBIN 31 pg (25-35); MEAN CORPUSCULAR HGB CONC 34 g/dL (31-37); MEAN CORPUSCULAR VOLUME 90 fL (79-100); MONO # 0.7 x10^3/uL (0.0-1.1); MONO % 9 % (0-9); NEUT # 5.1 x10^3uL (1.8-7.7); NEUT % 58 % (31-73); PLATELET COUNT 232 x10^3/uL (140-400); RED BLOOD COUNT 5.06 x10^6/uL (4.30-5.70); RED CELL DISTRIBUTION WIDTH 13.5 % (11.5-14.5); WHITE BLOOD COUNT 8.8 x10^3/uL (4.0-11.0)
[2021-04-10 06:32] LABS: CALCIUM 8.5 mg/dL (8.5-10.1); CREATININE 0.8 mg/dL (0.7-1.3); GFR 96.4; POTASSIUM 3.9 mmol/L (3.5-5.1)
[2021-04-10] MEDS ORDERED: ALPRAZolam 0.5 MG TABLET PO PRN (07:00)
--- NOTE | 2021-04-10 07:59 | HP ---
HISTORY OF PRESENT ILLNESS: A 65-year-old male came in initially through the office saying that he could not walk. The patient was having problems with gait, it was a new onset within the last 24 hours, came in through the office as noted. He woke up with numbness on the left side of his body. The patient notes that he has been having problems, feeling his left side of his face as well as his whole side. He had trouble showering. He had trouble getting dressed. He was falling over repeatedly and as a result of this the patient was admitted to the hospital for further evaluation. He went through the emergency room initially to rule out an acute stroke event itself. PAST MEDICAL HISTORY: His past medical history includes that of hearing problems right greater than left, left foot numbness, angina, hypercholesterolemia, hypertension, left shoulder surgery, back surgery, depression, tobacco abuse and the like. IMMUNIZATIONS: Not known. ALLERGIES: PENICILLIN AND IBUPROFEN. FAMILY HISTORY: Positive for Rickets and heart disease in the mother as well as diabetes. Father with dementia. Mother with dementia. SOCIAL HISTORY: The patient has about a [id number] history of smoking, occasional alcohol use, no hard drugs. The patient denies any problems with [id number] medications. The patient otherwise is a full code. REVIEW OF SYSTEMS: The patient has trouble speaking. He notes this problem with dressing, left-sided arm and leg numbness, weakness. The patient otherwise denies chest pain. Does have some shortness of breath. Denies abdominal pain. Denies any nausea, vomiting, melena, hematochezia, hematemesis. Otherwise outside of this weakness on the left side of his body, he is basically stable. PHYSICAL EXAMINATION: VITAL SIGNS: The patient's blood pressures in the office demonstrated some orthostasis lying down 160/84, pulse 60; standing 152/84, pulse 59; sitting 144/82, pulse 62. The patient's respiratory rate 18. He was afebrile. He was 218 pounds, BMI of 31 and 95%. GENERAL: The patient otherwise was alert, but he had trouble enunciating his words, looked somewhat intoxicated. The patient otherwise, he was unstable, just standing up he was tethering to one side. HEENT: His eyes were PERRLA. However, the mouth and throat were basically normal. Poor dentition. NECK: Supple, without JVD or carotid bruits. No thyromegaly. LUNGS: Diminished throughout. There was a poor movement of air. CARDIOVASCULAR: Regular sinus rhythm, S1, S2, without murmur, rub, thrill, or extra heart sound. ABDOMEN: Soft, nontender, no rebounding or guarding. Positive bowel sounds, no hepatosplenomegaly noted. EXTREMITIES: No clubbing, cyanosis. The patient has some atrophy noted to the musculoskeletal system. NEUROLOGIC: The patient is alert, but seems to be confused, disoriented, unable to enunciate his words, has trouble monitoring his speech. The patient otherwise will be continued to be monitored there. Reflexes are brisk on the left, decreased on the right. The patient's muscle strength on the left, hard to control his left leg with numbness and tingling noted there. Neurologically, the patient otherwise is not all with it, so to speak. The patient otherwise would be admitted for further evaluation and treatment through the emergency room. DIAGNOSTIC DATA: The CT scan of the head, no acute findings and the CTA of the neck did not demonstrate any significant findings there. HOME MEDICATIONS: He takes at home are listed as Xanax 1 mg b.i.d., chlorthalidone 25 daily, Zoloft 25 daily, Norvasc 5 mg daily, hydrocodone 7/325 p.r.n., nitroglycerin 0.4 sublingual p.r.n. chest pain, Lipitor 10 mg daily, metoprolol succinate ER 50 mg daily and lisinopril/hydrochlorothiazide 12.5/20, although he is not sure if these medications do seem a little bit abrupt for him. ASSESSMENT AND PLAN: In any case, the patient was seen through the emergency room and admitted for change in mental status, left-sided numbness, weakness, possible transient ischemic attack versus stroke in evolution, essential hypertension. Labs are basically stable except for sugars that were slightly elevated and approximately the average of about 130. BNP of 676 consistent with possible mild fluid retention, otherwise basically unremarkable. The patient will be continued to be monitored carefully, make further evaluation on him as indicated. WILLIE DR: Manju TID: [id number]
[2021-04-10] MEDS: ASPIRIN ENTERIC COATED 81 MG TABLET.DR. PO SCH (08:34)
[2021-04-10 10:38] VITALS: BP 127/66
[2021-04-10] MEDS ORDERED: PROMETH/CODEINE 6.25/10MG 5 ML SYRUP. PO PRN (13:00)
[2021-04-10 13:11] LABS: BARBITURATES NEG (NEG); BENZODIAZEPINES NEG (NEG); CANNABINOIDS NEG (NEG); COCAINE NEG (NEG); METHADONE NEG (NEG); OPIATES NEG (NEG); PHENCYCLIDINE NEG (NEG)
[2021-04-10 13:13] LABS: AMPHETAMINE/METHAMPHETAMINE NEG (NEG)
[2021-04-10 14:39] VITALS: BP 148/72
[2021-04-10] MEDS: IPRATRPIUM/ALBUTEROL 0.5/2.5MG 3 ML NEBU. NEB SCH ×2 (16:13→21:20)
[2021-04-10] MEDS ORDERED: HYDROcodone/APAP 7.5/325MG 1 TAB TABLET PO ONE (19:15)
[2021-04-10 20:37] VITALS: BP 172/80
[2021-04-10] MEDS: amLODIPine BESYLATE 5 MG TABLET PO SCH (21:20)
[2021-04-10 23:32] VITALS: BP 130/70
[2021-04-11] MEDS: HYDROcodone/APAP 7.5/325MG 1 TAB TABLET PO PRN ×2 (03:05→09:32)
[2021-04-11 05:41] VITALS: BP 124/56
[2021-04-11] MEDS: IPRATRPIUM/ALBUTEROL 0.5/2.5MG 3 ML NEBU. NEB SCH (06:20)
[2021-04-11] MEDS: ASPIRIN ENTERIC COATED 81 MG TABLET.DR. PO SCH (08:29)
[2021-04-11] MEDS ORDERED: ASPI-889 PO (09:19)
[2021-04-11] MEDS ORDERED: ATOR20TA PO (09:19)
[2021-04-11] MEDS ORDERED: AMLO-187 PO (09:19)
--- NOTE | 2021-04-15 21:21 | DS ---
DATE OF DISCHARGE: 04/11/2021 HOSPITAL COURSE: A 65-year-old gentleman came in through the office. The patient was having problems with his gait. He had marked weakness to the left side of his body. He had trouble showering or even speaking his words were very indistinct. The patient was brought in and showed weakness to the left side of his body. An immediate CT scan did not demonstrate anything in particular, no acute intracranial findings. His CTA demonstrated no intracranial large vessel occlusion. There is 50% stenosis at the origin of the right internal carotid artery, moderate pulmonary emphysema, but there were no other problems there. The patient made good progress with PT, OT. His white count was 8, hemoglobin 15, hematocrit 45. The patient's sodium, potassium 140 and 3.9, BUN and creatinine 16 and 0.8. Blood sugars were somewhat elevated in the low 120s. Liver enzymes were normal. BNP elevated at 676. Otherwise, the patient made good progress during the rest of his hospitalization and was discharged home. We will continue PT, OT as an outpatient and make further evaluation on that. IMPRESSION: Left-sided hemiparesis, possible transient ischemic attack, carotid atherosclerosis, occlusion, hyperglycemia, essential hypertension. Blood pressure was elevated at one time. The patient will be discharged on a heart healthy diet, decreased activity and he will return to clinic for followup in 7 to 10 days or sooner as needed. MATILDE DR: Manju TID: [id number]
== END 2021-04-11 11:00 | disposition home or self-care (01) ==
LOC: ER 14:38 → 1 SOUTH 19:19
PROVIDERS: ADMIT Family Medicine; ATTEND Family Medicine
DX: G81.94 Hemiplegia, unspecified affecting left nondominant side (principal); I65.21 Occlusion and stenosis of right carotid artery; J43.9 Emphysema, unspecified; E78.00 Pure hypercholesterolemia, unspecified; I10 Essential (primary) hypertension; R73.9 Hyperglycemia, unspecified; F32.9 Major depressive disorder, single episode, unspecified; Z87.891 Personal history of nicotine dependence; Z79.899 Other long term (current) drug therapy
CPT/HCPCS: 36415; 70450; 70496; 70498; 80048; 80053; 80061; 80307; 81001; 83735; 83880; 84100; 84484; 85025; 85610; 93005; 94640; 97110; 97116; 97161; 97166; 99285; G0378; Q9967; G0379